=== PATIENT | female | born 1965 | race Caucasian/White ===

== ENCOUNTER 2023-08-01 16:02 | Emergency (ER) | payer MEDICAID ==
[~2023-08-01] VITALS: Ht 167.6 cm; Wt 54.0 kg
[2023-08-01 16:08] VITALS: BP 114/71; PULSE 112; RESP 14; TEMP 103; O2SAT 98
[2023-08-01] MEDS ORDERED: CEFTRIAXONE 2GM/50ML (ADDEASE) 50 ML IV ONE (17:00)
[2023-08-01] MEDS ORDERED: SODIUM CHLORIDE 0.9% 1000ML BAG (SEPSIS BOLUS) IV ONE (17:00)
== END 2023-08-01 17:35 | disposition home or self-care (01) ==
LOC: ER 16:02 → EDBEDREQ 17:02 → ER 17:35
DX: R50.9 Fever, unspecified (principal); Z88.8 Allergy status to other drugs, medicaments and biological substances
CPT/HCPCS: 99283; J7030; J0696